=== PATIENT | female | born 2000 | race Caucasian/White ===

== ENCOUNTER → 2018-06-14 11:12 | Observation (INO) ==
[2018-06-14 09:37] LABS: Bilirubin,Urine Negative (Negative); Blood,Urine Negative (Negative); Clarity,Urine Cloudy (Clear); Color,Urine Yellow (Yellow); Glucose,Urine (UA) Normal (Normal); Ketones,Urine Negative (Negative); Leukocyte Esterase,Urine Moderate (Negative); Nitrite,Urine Negative (Negative); PH,Urine 6.5 pH Units (5.0-8.0); Protein,Urine Negative (Neg-Trace); Specific Gravity,Urine 1.008 (1.010-1.025); Urobilinogen,Urine Normal (Normal)
[2018-06-14 09:38] LABS: Bacteria,Urine Moderate per hpf (None-Few); Hyaline Casts,Urine None Seen per lpf (None-Few); Squamous Epithelial Cell,Urine Many per lpf (None-Few); WBC,Urine 15-30 per hpf (0-3)
[2018-06-14 09:48] LABS: Amphetamine Screen,Urine Negative ng/mL (Cutoff=1000); Barbiturate Screen,Urine Negative ng/mL (Cutoff=200); Benzodiazepines Screen,Urine Negative ng/mL (Cutoff=200); Cannabinoid Screen,Urine Negative ng/mL (Cutoff = 50); Cocaine Screen,Urine Negative ng/mL (Cutoff= 300); Opiate Screen,Urine Negative ng/mL (Cutoff=300); Phencyclidine Screen,Urine Negative ng/mL (Cutoff=25); RBC,Urine 0-3 per hpf (0-3)
--- NOTE | 2018-06-14 11:04 | OB Labor Progress Note ---
Date of Encounter: 06/14/18 Time of Encounter: 11:02 Labor Progress Note - Subjective Subjective: Pt had some low pelvic pain yesterday and awoke with sharper pain. This pain has now resolved. She denies uc's, vb or lof. No recent trauma or sexual relations. She denies GI or c/o. - Vital Signs Vital Signs: AF/VSS - Cervix Cervix: Declined exam, abdomen is nontender no CVAT - Heart Tones Heart Tones: RNST - Shoreline Shoreline: No UC's - Interventions Interventions: UA is neg - Plan Plan: Will d/c home. PTL precautions given.
== END | disposition home or self-care (01) ==
LOC: 1NENULAB
PROVIDERS: ADMIT Obstetrics & Gynecology; ATTEND Obstetrics & Gynecology

== ENCOUNTER 2021-01-09 07:57 | Inpatient (IN) ==
[2021-01-09] MEDS ORDERED: Famotidine 20 MG/2 ML VIAL IVP PRN (08:05)
[2021-01-09] MEDS ORDERED: Metoclopramide 10 MG/2 ML VIAL IVP PRN (08:05)
[2021-01-09] MEDS ORDERED: Naloxone 0.4 MG/ML INJ IVP PRN (08:05)
[2021-01-09] MEDS ORDERED: Ondansetron 4 MG/2 ML VIAL IVP PRN (08:05)
[2021-01-09] MEDS ORDERED: *HR* Nalbuphine 10 MG/ML AMPUL IV PRN (08:05)
[2021-01-09] MEDS ORDERED: miSOPROStoL 25 MCG TABLET VG PRN (08:11)
[2021-01-09 09:09] LABS: Amphetamine Screen,Urine Negative ng/mL (Cutoff=1000); Barbiturate Screen,Urine Negative ng/mL (Cutoff=200); Benzodiazepines Screen,Urine Negative ng/mL (Cutoff=200); Cannabinoid Screen,Urine Negative ng/mL (Cutoff = 50); Cocaine Screen,Urine Negative ng/mL (Cutoff= 300); Opiate Screen,Urine Negative ng/mL (Cutoff=300); Phencyclidine Screen,Urine Negative ng/mL (Cutoff=25)
[2021-01-09 09:23] LABS: Basophils % 0.4 %; Eosinophils # 0.1 K/mcL (0.0-0.6); Eosinophils % 1.2 %; Hematocrit 32.9 % (35.3-44.9); Hemoglobin 10.6 g/dL (11.5-15.4); Immature Granulocytes % 0.7 % (0-4); Lymphocytes % 18.9 %; Mean Corpuscular HGB Conc 32.2 g/dL (31.6-35.5); Mean Corpuscular Hemoglobin 26.6 pg (28.0-33.3); Mean Corpuscular Volume 82.7 fL (83.0-100.0); Mean Platelet Volume 11.7 fL (9.4-12.4); Monocytes # 0.7 K/mcL (0.0-1.3); Monocytes % 6.8 %; Neutrophils # 7.6 K/mcL (1.6-8.9); Platelet Count 191 K/mcL (140-400); Red Blood Count 3.98 M/mcL (3.82-4.97); Red Cell Distribution Width 13.4 % (11.5-14.5); White Blood Count 10.5 K/mcL (4.3-11.1)
[2021-01-09] MEDS ORDERED: EPHEDrine 50 MG/ML VIAL IVP PRN (09:25)
[2021-01-09] MEDS ORDERED: Epidural Premix (fent/bupiv) 110 ML EP SCH (09:30)
[2021-01-09 12:15] LABS: Influenza A PCR Negative (Negative); Influenza B PCR Negative (Negative); Resp. Syncytial Virus PCR Negative (Negative)
[2021-01-09 12:24] LABS: SARS-CoV-2 by PCR (In House) Negative (Negative)
[2021-01-09] MEDS: Ringers Solution, Lactated 1,000 ML IVC SCH ×2 (13:08→14:02)
[2021-01-09] MEDS ORDERED: Oxytocin 20 units/ LR 1000 mL 20 UNIT/1,000 ML BAG IVC SCH ×2 (13:15→19:15)
[2021-01-09] MEDS ORDERED: Benzocaine/Menthol 56 GM AEROSOL SPRAY TP PRN (19:12)
[2021-01-09] MEDS ORDERED: Ibuprofen 600 MG TABLET PO PRN (19:12)
[2021-01-09] MEDS ORDERED: Acetaminophen 325 MG TABLET PO PRN (19:12)
[2021-01-09] MEDS ORDERED: Lanolin 7 G OINT...G. TP PRN (19:12)
[2021-01-10 07:01] LABS: Basophils % 0.1 %; Eosinophils # 0.1 K/mcL (0.0-0.6); Eosinophils % 0.6 %; Hematocrit 34.4 % (35.3-44.9); Immature Granulocytes % 0.6 % (0-4); Lymphocytes # 1.7 K/mcL (0.6-4.6); Lymphocytes % 10.7 %; Mean Corpuscular Hemoglobin 26.5 pg (28.0-33.3); Mean Corpuscular Volume 82.9 fL (83.0-100.0); Mean Platelet Volume 11.7 fL (9.4-12.4); Monocytes # 1.3 K/mcL (0.0-1.3); Monocytes % 7.8 %; Neutrophils # 12.8 K/mcL (1.6-8.9); Platelet Count 178 K/mcL (140-400); Red Blood Count 4.15 M/mcL (3.82-4.97); Red Cell Distribution Width 13.4 % (11.5-14.5); Segmented Neutrophils % 80.2 %
[2021-01-10 07:24] VITALS: O2SAT 99
[2021-01-10] MEDS ORDERED: Prenatal Vit/FA 1 EACH TABLET PO SCH (09:00)
[2021-01-10 15:25] VITALS: BP 119/73; PULSE 78; TEMP 98.3
== END 2021-01-10 19:04 | disposition home or self-care (01) | DRG 560 ==
LOC: 1NENULAB 07:57 → 1NENUOBS 21:37
PROVIDERS: ADMIT Obstetrics & Gynecology; ATTEND Obstetrics & Gynecology